=== PATIENT | female | born 1990 | race Caucasian/White ===

== ENCOUNTER 2018-04-20 14:51 | Emergency (ER) | payer OTHER ==
[2018-04-20] MEDS: LORAZEPAM 0.5 MG TAB PO (16:33)
[2018-04-20] MEDS: METOCLOPRAMIDE 10 MG TAB PO (16:33)
[2018-04-20] MEDS: HYDROCODONE/APAP (7.5/325) TAB PO (16:47)
== END 2018-04-20 17:36 | disposition home or self-care (01) ==
LOC: FTE 14:51
DX: G43.109 Migraine with aura, not intractable, without status migrainosus (principal)
CPT/HCPCS: 70450; 81025; 99284-25